=== PATIENT | female | born 1955 | race American Indian/Alaskan Native ===

== ENCOUNTER 2021-01-24 15:52 | Emergency (ER) | payer OTHER ==
[2021-01-24 16:17] VITALS: BP 136/79
[2021-01-24] MEDS ORDERED: LOPERAMIDE 2 MG CAP PO ONE (16:37)
[2021-01-24] MEDS ORDERED: ONDANSETRON 4 MG ODT TAB PO ONE (16:37)
--- NOTE | 2021-01-24 16:41 | Emergency Department Report ---
ED N/V/D HPI - General Chief complaint: Abdominal Pain Stated complaint: CHILLS, VOMITTING, DIARRHEA, FEVER, STOMACH PAIN PUI?: No Time Seen by Provider: 01/24/21 16:29 Source: patient Mode of arrival: Ambulatory Limitations: No Limitations - History of Present Illness Initial comments: Chief complaint: "I just hurt all over." HPI: This is a 65year-old female with history of hypertension, hyperlipidemia and hysterectomy who presents with generalized body aches, subjective fever, vomiting diarrhea crampy abdominal pain since this morning at 2 AM. Her young 2-year-old grandchild has similar symptoms. She ate [place] food last night from grocery store. She is fully vaccinated against COVID-19. She also received a booster shot. She has received influenza vaccine. She vomited over 10 times today. She had over 10 bouts of diarrhea. She receives primary care at [facility]. MD complaint: nausea, vomiting, diarrhea, abdominal pain -: Gradual, This morning (2 AM this morning) Description of Vomiting: food contents Description of Diarrhea: water Associated Abdominal Pain: Yes Location: diffuse Severity: moderate Pain Scale: 5 Quality: cramping Improves with: none Worsens with: none Context: possible food poisoning, sick contacts Associated Symptoms: myalgias, shortness of breath, other (She denies cough) - Related Data Home Medications Medication Instructions Recorded Confirmed Last Taken Mv-Mn/Iron/Folic Acid/Herb 190 05/28/13 05/28/13 05/28/13 [Vitamin D3 Complete Caplet] Simvastatin 20 mg PO QHS 05/28/13 05/28/13 05/27/13 cloNIDine [Catapres] 0.2 mg PO DAILY 05/28/13 05/28/13 05/27/13 dilTIAZem XT (NF) [Taztia Xt (Nf)] 360 mg PO QDAY 05/28/13 05/28/13 05/28/13 Previous Rx's Medication Instructions Recorded Last Taken Type Famotidine [Pepcid] 40 mg PO QHS #7 tablet 05/28/13 Unknown Rx diphenhydrAMINE [Benadryl] 50 mg PO Q6HR PRN #30 capsule 05/28/13 Unknown Rx predniSONE [Deltasone] 3 tab PO QDAY #15 tab 05/28/13 Unknown Rx Loperamide [Imodium] 2 tab PO QID 2 Days #16 capsule 01/24/21 Unknown Rx Ondansetron [Zofran Odt] 4 mg PO Q8HR PRN #10 tab.rapdis 01/24/21 Unknown Rx Allergies Allergy/AdvReac Type Severity Reaction Status Date / Time No Known Allergies Allergy Verified 01/24/21 16:16 ED Review of Systems ROS: Stated complaint: CHILLS, VOMITTING, DIARRHEA, FEVER, STOMACH PAIN Other details as noted in HPI Constitutional: fever, malaise ENT: denies: throat pain Respiratory: shortness of breath. denies: cough Cardiovascular: denies: chest pain Gastrointestinal: abdominal pain, nausea, vomiting, diarrhea ED Past Medical Hx - Past Medical History Previous Medical History?: Yes Hx Hypertension: Yes Additional medical history: high cholesterol - Surgical History Past Surgical History?: Yes Additional Surgical History: Hysterectomy, Pilonidal cyst with skin graft, bunionectomy - Social History Smoking Status: Former Smoker Substance Use Type: Prescribed - Medications Home Medications: Home Medications Medication Instructions Recorded Confirmed Last Taken Type Famotidine [Pepcid] 40 mg PO QHS #7 tablet 05/28/13 Unknown Rx Mv-Mn/Iron/Folic Acid/Herb 190 05/28/13 05/28/13 05/28/13 History [Vitamin D3 Complete Caplet] Simvastatin 20 mg PO QHS 05/28/13 05/28/13 05/27/13 History cloNIDine [Catapres] 0.2 mg PO DAILY 05/28/13 05/28/13 05/27/13 History dilTIAZem XT (NF) [Taztia Xt (Nf)] 360 mg PO QDAY 05/28/13 05/28/13 05/28/13 History diphenhydrAMINE [Benadryl] 50 mg PO Q6HR PRN #30 capsule 05/28/13 Unknown Rx predniSONE [Deltasone] 3 tab PO QDAY #15 tab 05/28/13 Unknown Rx Loperamide [Imodium] 2 tab PO QID 2 Days #16 capsule 01/24/21 Unknown Rx Ondansetron [Zofran Odt] 4 mg PO Q8HR PRN #10 tab.rapdis 01/24/21 Unknown Rx ED Physical Exam - General Limitations: No Limitations General appearance: alert, in no apparent distress, other (Appears well appears nontoxic no acute distress) - Head Head exam: Present: atraumatic, normocephalic - Eye Eye exam: Present: normal appearance - ENT ENT exam: Present: mucous membranes moist - Neck Neck exam: Present: normal inspection - Respiratory Respiratory exam: Present: normal lung sounds bilaterally. Absent: respiratory distress - Cardiovascular Cardiovascular Exam: Present: regular rate, normal rhythm, normal heart sounds. Absent: systolic murmur, diastolic murmur, rubs, gallop - GI/Abdominal GI/Abdominal exam: Present: soft, normal bowel sounds. Absent: distended, tenderness, guarding, rebound - Extremities Exam Extremities exam: Present: normal inspection - Neurological Exam Neurological exam: Present: alert, oriented X3 - Psychiatric Psychiatric exam: Present: normal affect, normal mood - Skin Skin exam: Present: warm, dry, intact, normal color. Absent: rash ED Course Vital Signs 01/24/21 16:12 Temperature 98.5 F Pulse Rate 83 Respiratory 16 Rate Blood Pressure 136/79 [Left] O2 Sat by Pulse 97 Oximetry ED Medical Decision Making - Lab Data Result diagrams: 01/24/21 16:40 01/24/21 16:40 - Medical Decision Making Clinical impression viral gastroenteritis, viral syndrome: Differential diagnosis Food poisoning, influenza, COVID-19 infection. Recommended clear liqu id diet supportive care instructions. She understands return for abdominal pain if localized or severe. Mrs. Poe verbalized understanding to return if symptoms progress. CBC chemistry unremarkable. She has mild hypokalemia. She does take hydrochlorothiazide. Prescribed Zofran and loperamide Critical care attestation.: If time is entered above; I have spent that time in minutes in the direct care of this critically ill patient, excluding procedure time. ED Disposition Clinical Impression: Viral gastroenteritis, Viral syndrome Disposition: HOME / SELF CARE / HOMELESS Is pt being admited?: No Does the pt Need Aspirin: No Condition: Stable Instructions: Abdominal Pain (ED), Viral Gastroenteritis, Adult, [id number] Prescriptions: Loperamide [Imodium] 2 tab PO QID 2 Days #16 capsule Ondansetron [Zofran Odt] 4 mg PO Q8HR PRN #10 tab.rapdis PRN Reason: Nausea Referrals: PRIMARY CARE,MD [Primary Care Provider] - as needed
[2021-01-24 17:07] LABS: Basophils % (Auto) 0.2 % (0.0-1.8); Eosinophils % (Auto) 0.1 % (0.0-4.3); Hematocrit 38.8 % (30.3-42.9); Hemoglobin 12.9 gm/dl (10.1-14.3); Lymphocytes # (Auto) 1.6 K/mm3 (1.2-5.4); Lymphocytes % (Auto) 15.3 % (13.4-35.0); Mean Corpuscular HGB Conc 33 % (30-34); Mean Corpuscular Volume 90 fl (79-97); Monocytes # (Auto) 0.2 K/mm3 (0.0-0.8); Platelet Count 286 K/mm3 (140-440); Red Blood Count 4.29 M/mm3 (3.65-5.03); Red Cell Distribution Width 13.2 % (13.2-15.2)
[2021-01-24 17:14] LABS: Alanine Aminotransferase 19 units/L (7-56); Albumin 4.1 g/dL (3.9-5); BUN/Creatinine Ratio 19; Blood Urea Nitrogen 17 mg/dL (7-17); Calcium 8.9 mg/dL (8.4-10.2); Hemolysis Index 5
== END 2021-01-24 17:44 | disposition home or self-care (01) ==
LOC: ED 15:52
DX: A08.4 Viral intestinal infection, unspecified (principal); I10 Essential (primary) hypertension; E78.00 Pure hypercholesterolemia, unspecified; Z87.891 Personal history of nicotine dependence; Z90.710 Acquired absence of both cervix and uterus; Z79.899 Other long term (current) drug therapy
CPT/HCPCS: 36415; 80053; 83690; 85025; 99283; J3490; Q0162